=== PATIENT | female | born 1985 | race Caucasian/White ===

== ENCOUNTER 2018-05-05 18:10 | Emergency (ER) | payer MEDICAID ==
[~2018-05-05] VITALS: Ht 175.3 cm; Wt 62.0 kg
[2018-05-05] MEDS ORDERED: IBUPROFEN 600MG TABLET PO ONE (20:15)
[2018-05-05 20:19] LABS: BASOPHILS % 1.1 % (0.0-2.0); EOSINOPHILS % 0.3 % (0.0-5.0); HEMATOCRIT. 39.7 % (36.0-48.0); HEMOGLOBIN. 13.5 g/dL (12.0-16.0); LYMPHOCYTES % 17.6 % (20.0-50.0); MEAN CORPUSCULAR HEMOGLOBIN 31.4 pg (28.0-32.0); MEAN CORPUSCULAR VOLUME 92.6 fL (81.0-99.0); MEAN PLATELET VOLUME 9.2 fl (7.4-10.4); MONOCYTES % 5.7 % (2.0-8.0); NEUTROPHILS % 75.3 % (40.0-76.0); PLATELET 292 x1000/uL (130-400); RED BLOOD CELL COUNT 4.29 mill/uL (4.2-5.4); RED CELL DISTRIBUTION WIDTH 13.5 % (11.6-14.6)
[2018-05-05 20:22] LABS: CHLORIDE 102 mEq/L (98-107)
[2018-05-05 20:32] VITALS: BP 112/62
[2018-05-05 20:46] LABS: B-HCG QUANTITATIVE 18480 mIU/mL (<3)
== END 2018-05-05 21:15 | disposition home or self-care (01) ==
LOC: ER 19:43
DX: O04.80 (Induced) termination of pregnancy with unspecified complications (principal)
CPT/HCPCS: 36415; 76801; 80053; 84702; 85025; 86900; 99285

== ENCOUNTER 2018-12-21 18:10 | Emergency (ER) | payer MEDICAID | END 2018-12-21 20:38 | disposition left against medical advice (07) | LOC: ER 19:12 | DX: Z53.21 Procedure and treatment not carried out due to patient leaving prior to being seen by health care provider (principal) ==

== ENCOUNTER 2018-12-21 22:39 | Emergency (ER) | payer MEDICAID, OTHER ==
[~2018-12-21] VITALS: Ht 170.2 cm; Wt 64.0 kg
[2018-12-21 22:43] VITALS: BP 122/83
== END 2018-12-22 01:45 | disposition left against medical advice (07) ==
LOC: ER 22:55
DX: Z53.21 Procedure and treatment not carried out due to patient leaving prior to being seen by health care provider (principal)